=== PATIENT | male | born 1960 | race Two or more races ===

== ENCOUNTER 2025-02-12 14:16 | Inpatient (IN) | payer MEDICARE, MEDICAID ==
[~2025-02-12] VITALS: Ht 167.6 cm; Wt 64.4 kg
[2025-02-12 15:08] LABS: BASOPHILS % (AUTO) 0.7 % (0.0-2.0); EOSINOPHILS # (AUTO) 0.1 K/uL (0.0-0.7); EOSINOPHILS % (AUTO) 1.4 % (0.0-6.0); HEMATOCRIT 43 % (39-51); HEMOGLOBIN 14.4 g/dL (13.5-17.5); LYMPHOCYTES # (AUTO) 1.1 K/uL (0.8-4.8); LYMPHOCYTES % (AUTO) 16.4 % (20.0-44.0); MEAN CORPUSCULAR HEMOGLOBIN 32 PG (26.0-33.0); MEAN CORPUSCULAR HGB CONC 34 g/dl (31.0-36.0); MEAN CORPUSCULAR VOLUME 94 fL (80-96); MONOCYTES # (AUTO) 0.7 K/uL (0.1-1.30); MONOCYTES % (AUTO) 10.2 % (2.0-12.0); NEUTROPHILS # (AUTO) 4.9 K/uL (1.8-8.9); NEUTROPHILS % (AUTO) 71.3 % (43.0-81.0); PLATELET COUNT (AUTO) 263 K/uL (150-450); RED BLOOD CELL COUNT(AUTO) 4.55 MIL/uL (4.5-6.0); WHITE BLOOD COUNT (AUTO) 6.9 K/uL (4.3-11.0)
[2025-02-12 15:17] LABS: CALCIUM, SERUM 9.4 mg/dL (8.5-10.1); CARBON DIOXIDE 23 mmol/L (21-32); CHLORIDE 100 mmol/L (98-107); CREATININE 0.6 mg/dL (0.6-1.3); GLUCOSE 107 mg/dL (74-106); POTASSIUM 4.1 mmol/L (3.5-5.1); SODIUM SERUM 130 mmol/L (136-145); UREA NITROGEN, BLOOD 11 mg/dL (7-18)
[2025-02-12 15:23] LABS: ALANINE AMINOTRANSFERASE 35 U/L (12-78); ALBUMIN 3.2 g/dL (3.4-5.0); ALKALINE PHOSPHATASE 188 U/L (46-116); ASPARTATE AMINOTRANSFERASE 19 U/L (15-37); BILIRUBIN,DIRECT 0.2 mg/dL (0.0-0.2); BILIRUBIN,TOTAL 0.8 mg/dL (0.2-1.0); LIPASE 175 U/L (16-77)
[2025-02-12] MEDS ORDERED: APIX2.5T PO (15:42)
[2025-02-12] MEDS ORDERED: MULT-213 PO (15:42)
[2025-02-12] MEDS ORDERED: ATOR80TA PO ×2 (15:42→15:51)
[2025-02-12] MEDS ORDERED: VITS5OIN2 TP (15:42)
[2025-02-12] MEDS ORDERED: TAMS-12 PO (15:42)
[2025-02-12] MEDS ORDERED: POLY17PO4 PO (15:42)
[2025-02-12] MEDS ORDERED: ZINC56.713 TP (15:42)
[2025-02-12] MEDS ORDERED: OXYC-117 PO (15:42)
[2025-02-12] MEDS ORDERED: METO25TA4 PO (15:42)
[2025-02-12] MEDS ORDERED: POLY15DR31 EACHEYE (15:42)
[2025-02-12] MEDS ORDERED: LOSA25TA27 PO (15:42)
[2025-02-12] MEDS ORDERED: HYDR-4076 PO (15:42)
[2025-02-12] MEDS ORDERED: ACET325T53 PO ×2 (15:42)
[2025-02-12] MEDS ORDERED: MAGN400O6 PO (15:42)
[2025-02-12] MEDS ORDERED: ASPI-1169 PO (15:51)
[2025-02-12] MEDS ORDERED: MELA1TAB47 PO (15:51)
[2025-02-12] MEDS ORDERED: AMLO-213 PO (15:51)
[2025-02-12] MEDS ORDERED: LISI40TA13 PO (15:51)
[2025-02-12] MEDS ORDERED: CLOP75TA15 PO (15:51)
[2025-02-12] MEDS ORDERED: METF-881 PO (15:51)
[2025-02-12] MEDS ORDERED: BETA15CR5 TP (15:51)
[2025-02-12] MEDS ORDERED: Z GUARD REMEDY 4 OZ OINT TP PRN (16:30)
[2025-02-12] MEDS ORDERED: ONDANSETRON HCL/PF 4 MG/2 ML VIAL IVP PRN (16:30)
[2025-02-12] MEDS ORDERED: MAG HYDROX/AL HYDROX/SIMETH 30 ML UDC PO PRN (16:30)
[2025-02-12] MEDS ORDERED: POLYETHYLENE GLYCOL 3350 17 GM POWD.PACK PO PRN (16:30)
[2025-02-12] MEDS ORDERED: ACETAMINOPHEN 325 MG TABLET PO PRN (16:30)
[2025-02-12 18:45] VITALS: BP 139/66; TEMP 98.2; O2SAT 97
[2025-02-12 20:00] VITALS: BP 146/61; TEMP 98.6; O2SAT 92
[2025-02-12] MEDS: IV NS 0.9% 1,000 ML IV PRN (20:13)
[2025-02-12] MEDS: ATORVASTATIN 40 MG TABLET PO SCH (21:10)
[2025-02-12] MEDS ORDERED: Medication Not On Formulary EA (Melatonin 1 MG) PO SCH (22:00)
[2025-02-13 01:39] LABS: APPEARANCE,URINE CLEAR (CLEAR); BILIRUBIN,URINE NEGATIVE (NEGATIVE); BLOOD, URINE NEGATIVE Ery/uL (NEGATIVE); COLOR,URINE YELLOW (YELLOW); KETONES,URINE NEGATIVE (NEGATIVE); LEUKOCYTE ESTERASE ,URINE NEGATIVE (NEGATIVE); NITRITE, URINE NEGATIVE (NEGATIVE); PROTEIN,URINE NEGATIVE (NEGATIVE); UGLUCOSE NEGATIVE (NEGATIVE)
[2025-02-13 01:51] LABS: ADD URINE CULTURE NO; BACTERIA,URINE Rare /HPF (None Seen); RBC,URINE 0-2 /HPF (0-2); SQUAMOUS EPITHELIAL CELL,UR Rare /HPF (None Seen); WBC,URINE 0-2 /HPF (0-3)
[2025-02-13] MEDS: MAGNESIUM HYDROXIDE 30 ML UDC PO PRN (07:26)
[2025-02-13 07:30] VITALS: BP 145/76; TEMP 97.3; O2SAT 94
[2025-02-13 07:41] LABS: BASOPHILS % (AUTO) 0.7 % (0.0-2.0); EOSINOPHILS # (AUTO) 0.2 K/uL (0.0-0.7); EOSINOPHILS % (AUTO) 3.6 % (0.0-6.0); HEMATOCRIT 38 % (39-51); HEMOGLOBIN 12.8 g/dL (13.5-17.5); LYMPHOCYTES # (AUTO) 1.3 K/uL (0.8-4.8); LYMPHOCYTES % (AUTO) 22.8 % (20.0-44.0); MEAN CORPUSCULAR HEMOGLOBIN 31 PG (26.0-33.0); MEAN CORPUSCULAR HGB CONC 34 g/dl (31.0-36.0); MEAN CORPUSCULAR VOLUME 92 fL (80-96); MONOCYTES # (AUTO) 0.7 K/uL (0.1-1.30); MONOCYTES % (AUTO) 12.5 % (2.0-12.0); NEUTROPHILS # (AUTO) 3.6 K/uL (1.8-8.9); NEUTROPHILS % (AUTO) 60.4 % (43.0-81.0); PLATELET COUNT (AUTO) 254 K/uL (150-450); RED BLOOD CELL COUNT(AUTO) 4.08 MIL/uL (4.5-6.0); WHITE BLOOD COUNT (AUTO) 5.9 K/uL (4.3-11.0)
[2025-02-13 08:00] VITALS: BP 145/76; TEMP 97.3; O2SAT 94
[2025-02-13 08:10] LABS: CALCIUM, SERUM 9.3 mg/dL (8.5-10.1); CREATININE 0.4 mg/dL (0.6-1.3); MAGNESIUM 2.1 mg/dL (1.8-2.4); PHOSPHORUS 3.4 mg/dL (2.5-4.9); POTASSIUM 3.6 mmol/L (3.5-5.1)
[2025-02-13] MEDS: ASPIRIN 81 MG TAB.CHEW PO SCH (09:01)
[2025-02-13] MEDS: CLOPIDOGREL BISULFATE 75 MG TABLET PO SCH (09:02)
[2025-02-13] MEDS: AMLODIPINE BESYLATE 10 MG TABLET PO SCH (09:02)
[2025-02-13] MEDS: METFORMIN XR 500 MG TAB.SR.24H PO SCH (09:02)
[2025-02-13] MEDS: LISINOPRIL (20MG) 20 MG TABLET PO SCH (09:02)
[2025-02-13] MEDS: BETAMETHASONE DIP 0.05% CREAM 15 GM TUBE TP SCH (09:35)
[2025-02-13 16:00] VITALS: BP 125/63; TEMP 98.2; O2SAT 93
[2025-02-13 20:00] VITALS: BP 132/70; TEMP 98.4; O2SAT 97
[2025-02-14 06:22] LABS: BASOPHILS % (AUTO) 0.5 % (0.0-2.0); EOSINOPHILS # (AUTO) 0.2 K/uL (0.0-0.7); EOSINOPHILS % (AUTO) 3.2 % (0.0-6.0); HEMATOCRIT 38 % (39-51); HEMOGLOBIN 13.1 g/dL (13.5-17.5); LYMPHOCYTES # (AUTO) 1.1 K/uL (0.8-4.8); LYMPHOCYTES % (AUTO) 21.2 % (20.0-44.0); MEAN CORPUSCULAR HEMOGLOBIN 32 PG (26.0-33.0); MEAN CORPUSCULAR HGB CONC 34 g/dl (31.0-36.0); MEAN CORPUSCULAR VOLUME 92 fL (80-96); MONOCYTES # (AUTO) 0.6 K/uL (0.1-1.30); NEUTROPHILS # (AUTO) 3.3 K/uL (1.8-8.9); NEUTROPHILS % (AUTO) 63.1 % (43.0-81.0); PLATELET COUNT (AUTO) 225 K/uL (150-450); RED BLOOD CELL COUNT(AUTO) 4.15 MIL/uL (4.5-6.0); WHITE BLOOD COUNT (AUTO) 5.2 K/uL (4.3-11.0)
[2025-02-14 07:02] LABS: ALBUMIN 2.8 g/dL (3.4-5.0); BILIRUBIN,TOTAL 0.8 mg/dL (0.2-1.0); CREATININE 0.4 mg/dL (0.6-1.3); POTASSIUM 3.9 mmol/L (3.5-5.1)
[2025-02-14 08:00] VITALS: BP 135/80; TEMP 97.9; O2SAT 96
[2025-02-14 16:00] VITALS: BP 140/71; TEMP 97.7; O2SAT 99
[2025-02-14 20:00] VITALS: BP 146/64; TEMP 98.4; O2SAT 96
[2025-02-15 08:00] VITALS: BP 132/67; TEMP 98.2; O2SAT 94
[2025-02-15 08:21] VITALS: BP 132/67
== END 2025-02-15 14:00 | DRG 640 ==
LOC: ER 14:23 → MED 16:59
PROVIDERS: ADMIT Nurse Practitioner Acute Care; ATTEND Nurse Practitioner Acute Care
DX: E87.1 Hypo-osmolality and hyponatremia (principal); G93.41 Metabolic encephalopathy; E44.0 Moderate protein-calorie malnutrition; I69.354 Hemiplegia and hemiparesis following cerebral infarction affecting left non-dominant side; E86.1 Hypovolemia; R62.7 Adult failure to thrive; E78.5 Hyperlipidemia, unspecified; E88.09 Other disorders of plasma-protein metabolism, not elsewhere classified; E11.9 Type 2 diabetes mellitus without complications; I10 Essential (primary) hypertension; I25.2 Old myocardial infarction; R53.1 Weakness; Z68.22 Body mass index [BMI] 22.0-22.9, adult; Z79.84 Long term (current) use of oral hypoglycemic drugs
CPT/HCPCS: 36415; 70450-TC; 71045-TC; 80048-TC; 80053-TC; 80076-TC; 81001; 82962-TC; 83690-TC; 83735-TC; 84100-TC; 84484-TC; 85025-TC; 87081-TC; 92526; 92611-TC; 97110-TC; 97116-TC; 97530-TC; A4223; G0378; J7030